=== PATIENT | female | born 1995 | race Caucasian/White ===

== ENCOUNTER 2023-07-28 12:54 | Emergency (ER) | payer OTHER ==
[~2023-07-28] VITALS: Ht 167.6 cm; Wt 50.0 kg
[2023-07-28 13:06] VITALS: BP 146/73; PULSE 100; RESP 16; TEMP 99
[2023-07-28 13:38] LABS: APPEARANCE,URINE CLEAR (CLEAR); BILIRUBIN,URINE NEGATIVE (NEGATIVE); COLOR,URINE YELLOW (YELLOW); GLUCOSE, URINE (UA) NEGATIVE (NEGATIVE); HCG,QUAL URINE NEGATIVE (NEGATIVE); KETONES,URINE NEGATIVE (NEGATIVE); LEUKOCYTE ESTERASE ,URINE NEGATIVE (NEGATIVE); NITRATE,URINE POSITIVE (NEGATIVE); OCCULT BLOOD,URINE NEGATIVE (NEGATIVE); PROTEIN,URINE NEGATIVE (NEGATIVE); SPECIFIC GRAVITIY, URINE 1.024 (1.003-1.030); UROBILINOGEN,URINE <=1.0 mg/dL (<=1.0)
[2023-07-28 13:46] LABS: BACTERIA,URINE Many /HPF (None Seen); RBC,URINE None Seen /HPF (0-2); SQUAMOUS EPITHELIAL CELL,UR None Seen /LPF (None Seen); WBC,URINE 0-2 /HPF (0-5)
[2023-07-28] MEDS ORDERED: AZITHROMYCIN 500 MG TABLET PO ONE (14:00)
[2023-07-28] MEDS ORDERED: CefTRIAXone SODIUM 1 GM/VIAL IM ONE (14:00)
[2023-07-28] MEDS ORDERED: LIDOCAINE/PF 1% 2 ML VIAL IM ONE (14:00)
[2023-07-28] MEDS ORDERED: METR500 PO (14:04)
== END 2023-07-28 14:33 | disposition home or self-care (01) ==
LOC: EMS 12:55
DX: N34.2 Other urethritis (principal); F17.210 Nicotine dependence, cigarettes, uncomplicated
CPT/HCPCS: 99283; 81001; 84703; 87086; 87186; J0696; J3490; Q9967